=== PATIENT | female | born 1940 | race Caucasian/White ===

== ENCOUNTER → 2016-03-25 | Outpatient (CLI) | payer OTHER ==
--- NOTE | 2016-03-25 10:22 | MA ---
Diagnostic Digital Right Mammography Clinical History: 75-year-old female for follow up of likely benign calcifications. Technique: Digital CC and MLO views of the right breast are compared with previous studies dated July 23, 2015, July 10, 2015, April 07, 2013, January 28, 2012, April 02, 2010, and September 06, 2008. Thi s examination was processed by the [employer] computer-aided detection system. Breast Density: Type C. CAD Evaluation: Negative. Findings: Of the four previously seen calcifications, one has completely disappeared and the second o ne has nearly completely disappeared. There are no new calcifications or new suspicious morphologies. Benign-appearing right axillary lymph nodes are seen. A heterogeneously dense fibroglandular pattern is stable. Impression: Benign mammography. BI-RADS Category: 2. Recommendation: Routine bilateral mammographic follow up in June 2016.
== END ==
LOC: BRMIMAGING 09:46
DX: R93.8 Abnormal findings on diagnostic imaging of other specified body structures (principal)
CPT/HCPCS: G0206

== ENCOUNTER → 2016-09-29 | Outpatient (CLI) | payer OTHER | LOC: BHFA 14:00 | PROVIDERS: ATTEND Internal Medicine Cardiovascular Disease | DX: R07.9 Chest pain, unspecified (principal); I11.9 Hypertensive heart disease without heart failure; R06.02 Shortness of breath; I25.10 Atherosclerotic heart disease of native coronary artery without angina pectoris ==

== ENCOUNTER → 2018-01-05 | Outpatient (CLI) | payer OTHER | LOC: FIMAGING 10:49 | PROVIDERS: ATTEND Family Medicine | DX: Z12.31 Encounter for screening mammogram for malignant neoplasm of breast (principal); Z80.3 Family history of malignant neoplasm of breast ==

== ENCOUNTER → 2018-09-10 | Outpatient (CLI) | payer OTHER | LOC: CIMAGING 13:06 ==